=== PATIENT | male | born 1995 | race Caucasian/White ===

== ENCOUNTER 2021-08-29 14:24 | Emergency (ER) | payer OTHER ==
[~2021-08-29] VITALS: Ht 165.1 cm; Wt 61.2 kg
== END 2021-08-29 18:18 | disposition home or self-care (01) ==
LOC: ER 14:24
DX: S43.014A Anterior dislocation of right humerus, initial encounter (principal); X50.0XXA Overexertion from strenuous movement or load, initial encounter; Y93.B2 Activity, push-ups, pull-ups, sit-ups; Y92.832 Beach as the place of occurrence of the external cause; Y99.8 Other external cause status